=== PATIENT | female | born 1985 | race Caucasian/White ===

== ENCOUNTER 2024-10-25 12:45 | Outpatient (CLI) | payer OTHER, SELFPAY ==
--- NOTE | 2024-10-25 12:53 | US_ITS ---
PROCEDURE: PELVIC W/ TRANSVAGINAL REASON FOR EXAM: HX OVARIAN CA/IRREG MENSES TECHNIQUE: Transabdominal and transvaginal pelvic ultrasound COMPARISON: None FINDINGS: Measurements: Uterus: 8.7 x 4.0 x 5.6 cm for volume of 102.2 mL Endometrial Thickness: 1.1 cm Right Ovary: Surgically absent Left Ovary: 4.0 x 2.6 x 3.5 cm for volume of 19.1 mL TRANSABDOMINAL: Uterus: Normal size, myometrial echotexture, and contour. Endometrium: Unremarkable. Right ovary: Surgically absent Left ovary: Normal size and echotexture. Transvaginal sonography was performed as transabdominal imaging did not explain the patient's presenting symptoms. TRANSVAGINAL: Uterus: Anteverted. Endometrium: There is trace fluid present within the endometrial canal, favored to be physiologic Right ovary: Surgically absent. Left ovary: Multiple prominent ovarian follicles Cul-de-sac: Minimal free fluid in the pelvis within normal limits. US/Pelvic w/ Transvaginal IMPRESSION: 1. Borderline findings for polycystic morphology of the left ovary, correlate for clinical evidence of PCOS. 2. Surgically absent right ovary. Reading Location: [facility]
== END 2024-10-25 23:59 | disposition home or self-care (01) ==
PROVIDERS: Referring Provider Nurse Practitioner Adult Health; Visit Provider Nurse Practitioner Adult Health
DX: N92.6 Irregular menstruation, unspecified (principal); Z85.43 Personal history of malignant neoplasm of ovary
CPT/HCPCS: 76830; 76856